=== PATIENT | female | born 1990 | race Hispanic/Latino ===

== ENCOUNTER 2017-05-16 14:46 | Emergency (ER) | payer BC, OTHER ==
[2017-05-16 14:46] VITALS: BMI 33.6
[2017-05-16 14:51] VITALS: BP 147/80; PULSE 107; RESP 18; TEMP 98.1; O2SAT 100
[2017-05-16] MEDS ORDERED: Lactated Ringer's 1,000 ML IV STA (14:58)
--- NOTE | 2017-05-16 15:07 | ED PDOC ---
HPI: Female Pain Time Seen by Provider: 05/16/17 14:57 Chief Complaint (Nursing): Female Genitourinary Chief Complaint (Provider): vaginal bleed History Per: Patient Onset/Duration Of Symptoms: Hrs (1) Current Symptoms Are (Timing): Better Severity: Moderate Quality Of Discomfort: Cramping Associated Symptoms: Nausea. denies: Fever, Chills, Vomiting, Urinary Symptoms Additional Complaint(s): Sudden onset vaginal bleeding while using bathroom about an hour prior to arrival, "gush of blood." Has decreased since then to light spotting. Cramping severe since 9am that has improved. (1 elective ab) at 6w2d per LMP April 02. Found out she was 5 days ago. OB: Nel (has 1st appt tomorrow) Past Medical History Reviewed: Historical Data, Nursing Documentation, Vital Signs Vital Signs: Last Vital Signs Temp 98.1 F 05/16/17 14:48 Pulse 107 H 05/16/17 14:48 Resp 18 05/16/17 14:48 BP 147/80 05/16/17 14:48 Pulse Ox 100 05/16/17 14:48 - Medical History Other PMH: Lyme - Surgical History Other surgeries: Culposcopy (no abnormal findings) - Family History Family History: States: No Known Family Hx - Social History Current smoker - smoking cessation education provided: No - Home Medications Home Medications: Ambulatory Orders Medication Instructions Recorded Multivit/Folic Acid/I 1 tab PO DAILY 05/02/16 [ Plus] - Allergies Allergies/Adverse Reactions: Allergies Allergy/AdvReac Type Severity Reaction Status Date / Time No Known Allergies Allergy Verified 05/16/17 14:47 Review of Systems ROS Statement: Except As Marked, All Systems Reviewed And Found Negative (and as per HPI) Gastrointestinal: Positive for: Nausea, Abdominal Pain. Negative for: Vomiting Genitourinary Female: Positive for: Vaginal Bleeding, Pelvic Pain. Negative for : Dysuria, Frequency Physical Exam - Reviewed Nursing Documentation Reviewed: Yes Vital Signs Reviewed: Yes - Physical Exam Appears: Positive for: Non-toxic, In Acute Distress (tearful) Head Exam: Positive for: ATRAUMATIC, NORMOCEPHALIC Skin: Positive for: Warm, Dry Eye Exam: Positive for: EOMI, PERRL ENT: Positive for: Pharynx Is (clear) Neck: Positive for: Painless ROM, Supple Cardiovascular/Chest: Positive for: Regular Rate, Rhythm. Negative for: Murmur Respiratory: Positive for: Normal Breath Sounds. Negative for: Respiratory Distress Gastrointestinal/Abdominal: Positive for: Bowel Sounds, Soft, Tenderness ( minimal suprapubic ttp) Back: Positive for: Normal Inspection. Negative for: Decreased ROM Extremity: Positive for: Normal ROM. Negative for: Deformity Lymphatic: Negative for: Adenopathy Neurologic/Psych: Positive for: Alert. Negative for: Motor/Sensory Deficits - Laboratory Results Result Diagrams: 05/16/17 15:25 Interpretation Of Abn Labs: No emergently critical lab abnormalities. Beta hcg level within range for 6 week . Previous labs in blood bank Rh + - ECG O2 Sat by Pulse Oximetry: 100 Pulse Ox Interpretation: Normal - Progress ED Course And Treament: Accession No. : [id number] Patient Name / ID : SAVANNAH HOLGUIN / [id number] Exam Date : 05/16/2017 17:02:30 ( Approved ) Study Comment : Sex / Age : F / [id number] Creator : Juju Cannon MD Dictator : Supervisor Fish Processing : Window Draper : Juju Cannon MD Approver2 : Report Date : 05/16/2017 17:55:30 My Comment : Indication: Vaginal bleeding, Comparison: None available Technique: Transvaginal pelvic ultrasound. Findings: The uterus measures approximately 8.7 x 3.7 x 6.0 cm anteverted. Cervix length measures approximately 3.9 cm. The gestational sac measures approximately 6 mm, out of range for gestational age calculation. 5 x 2 x 5 mm anechoic cystic appearing focus superior to the gestational sac 1 mm yolk sac. pole is not identified. The right ovary measures 3.6 x 2.6 x 2.7 cm. The left ovary measures 2.4 x 1.2 x 2.3 cm. Blood flow was demonstrated to both ovaries. Impression: Intrauterine gestational sac, too small for gestational age calculation. 1 mm yolk sac is seen. No evidence of pole at this time. Recommend clinical correlation including quantitative beta HCG. 5 x 2 x 4 mm anechoic cystic appearing focus noted superior to the gestational sac of uncertain significance. Attention on follow-up is suggested. Advise an anomaly screen at 16-18 weeks gestational age DW pt findings and plan of care. Has appointment with Dr Neumann in AM. Disposition - Clinical Impression Clinical Impression: Threatened miscarriage Counseled Patient/Family Regarding: Studies Performed, Diagnosis, Need For Followup - Disposition Referrals: Brock Neumann DO [Staff Provider] - 05/17/17 Disposition: Routine/Home Disposition Time: 18:06 Condition: STABLE Additional Instructions: REST AND PLENTY OF HYDRATING FLUIDS CONTINUE VITAMINS FOLLOW UP SCHEDULED WITH DR NEUMANN TOMORROW RETURN TO ER FOR SEVERE PAIN, FAINTING OR NEAR FAINTING, BLEEDING MORE THAN ONE PAD AN HOUR, OR ANY OTHER WORRISOME SYMPTOMS Instructions: Threatened Miscarriage (ED) Forms: [facility] ED School/Work Excuse
[2017-05-16 15:29] LABS: BASO # 0.1 K/uL (0.0-0.2); BASO % 0.8 % (0.0-2.0); EOS # 0.1 K/uL (0.0-0.7); EOS % 0.9 % (0.0-4.0); HEMATOCRIT 38.3 % (34.0-47.0); LYMPH # 2.4 K/uL (1.0-4.3); LYMPH % 25.5 % (20.0-40.0); MEAN CORPUSCULAR HEMOGLOBIN 32.5 pg (27.0-31.0); MEAN CORPUSCULAR HGB CONC 34.2 g/dL (33.0-37.0); MEAN PLATELET VOLUME 7.6 fl (7.2-11.7); MONO # 0.5 K/uL (0.0-0.8); MONO % 5.8 % (0.0-10.0); NEUT # 6.3 K/uL (1.8-7.0); NRBC % 0.1 % (0.0-0.0); RED CELL DISTRIBUTION WIDTH 12.6 % (11.5-14.5); WHITE BLOOD COUNT 9.4 K/uL (4.8-10.8)
--- NOTE | 2017-05-16 17:57 | US ---
Indication: Vaginal bleeding, Comparison: None available Technique: Transvaginal pelvic ultrasound. Findings: The uterus measures approximately 8.7 x 3.7 x 6.0 cm anteverted. Cervix length measures approximately 3.9 cm. The gestational sac measures approximately 6 mm, out of range for gestational age calculation. 5 x 2 x 5 mm anechoic cystic appearing focus superior to the gestational sac 1 mm yolk sac. pole is not identified. The right ovary measures 3.6 x 2.6 x 2.7 cm. The left ovary measures 2.4 x 1.2 x 2.3 cm. Blood flow was demonstrated to both ovaries. Impression: Intrauterine gestational sac, too small for gestational age calculation. 1 mm yolk sac is seen. No evidence of pole at this time. Recommend clinical correlation including quantitative beta HCG. 5 x 2 x 4 mm anechoic cystic appearing focus noted superior to the gestational sac of uncertain significance. Attention on follow-up is suggested. Advise an anomaly screen at 16-18 weeks gestational age
== END 2017-05-16 18:31 | disposition home or self-care (01) ==
LOC: H.ER 14:46
DX: O20.0 Threatened abortion (principal); Z3A.18 18 weeks gestation of pregnancy
CPT/HCPCS: 76817; 81025; 84702; 85025; 86850; 86900; 96360; 96361; 99283; J7120

== ENCOUNTER 2017-08-04 20:30 | Emergency (ER) | payer BC ==
[2017-08-04 20:30] VITALS: BMI 33.6
[2017-08-04 20:36] VITALS: BP 117/63; PULSE 109; RESP 16; TEMP 98.1; O2SAT 100
[2017-08-04] MEDS ORDERED: Sodium Chloride 0.9% 1,000 ML IV STA (21:02)
--- NOTE | 2017-08-04 21:02 | ED PDOC ---
HPI: Abdomen Time Seen by Provider: 08/04/17 20:41 Chief Complaint (Nursing): GI Problem Chief Complaint (Provider): Vomiting History Per: Patient Additional Complaint(s): 26 yo female, no PMH, presents to ED for evaluation of multiple episodes of vomiting since 7am. Patient is approximately 16 weeks . A2. Patient c/o crampy abdominal pain, denies vaginal bleeding or discharge. Past Medical History Reviewed: Nursing Documentation, Vital Signs Vital Signs: Last Vital Signs Temp 98.1 F 08/04/17 20:33 Pulse 109 H 08/04/17 20:33 Resp 16 08/04/17 20:33 BP 117/63 08/04/17 20:33 Pulse Ox 100 08/04/17 21:02 - Medical History PMH: No Chronic Diseases - Surgical History Surgical History: No Surg Hx - Family History Family History: States: No Known Family Hx - Living Arrangements Living Arrangements: With Family - Social History Alcohol: Social Drugs: Denies - Home Medications Home Medications: Ambulatory Orders Medication Instructions Recorded Multivit/Folic Acid/I 1 tab PO DAILY 05/02/16 [ Plus] Ondansetron ODT [Zofran ODT] 4 mg PO Q6 PRN #10 odt 08/04/17 - Allergies Allergies/Adverse Reactions: Allergies Allergy/AdvReac Type Severity Reaction Status Date / Time No Known Allergies Allergy Verified 08/04/17 20:33 Review of Systems ROS Statement: Except As Marked, All Systems Reviewed And Found Negative Physical Exam - Reviewed Nursing Documentation Reviewed: Yes Vital Signs Reviewed: Yes - Physical Exam Appears: Positive for: Well, Non-toxic, No Acute Distress Head Exam: Positive for: ATRAUMATIC, NORMAL INSPECTION, NORMOCEPHALIC Skin: Positive for: Normal Color, Warm, DRY Eye Exam: Positive for: EOMI, Normal appearance, PERRL ENT: Positive for: Normal ENT Inspection Neck: Positive for: Normal, Painless ROM Cardiovascular/Chest: Positive for: Regular Rate, Rhythm Respiratory: Positive for: CNT, Normal Breath Sounds Gastrointestinal/Abdominal: Positive for: Normal Exam, Bowel Sounds, Soft Back: Positive for: Normal Inspection Extremity: Positive for: Normal ROM Neurologic/Psych: Positive for: Alert, Oriented - Laboratory Results Result Diagrams: 08/04/17 21:19 08/04/17 21:19 - ECG O2 Sat by Pulse Oximetry: 100 Medical Decision Making Medical Decision Making: IV access established and treatment initiated with IVF and Zofran Labs resulted and reviewed with Pt who demonstrated full understanding Pt reports feeling well on re-eval. Abdomen soft non tender and non distended Disposition - Clinical Impression Clinical Impression: Gastroenteritis - Patient ED Disposition Is Patient to be Admitted: No - Disposition Disposition: Routine/Home Disposition Time: 22:00 Condition: STABLE Prescriptions: Ondansetron ODT [Zofran ODT] 4 mg PO Q6 PRN #10 odt PRN Reason: Nausea/Vomiting Instructions: Gastroenteritis (ED) Forms: [facility] (Romanian)
[2017-08-04 21:24] LABS: BASO % 0.2 % (0.0-2.0); EOS % 0.1 % (0.0-4.0); HEMATOCRIT 34.3 % (34.0-47.0); LYMPH # 0.8 K/uL (1.0-4.3); LYMPH % 11.3 % (20.0-40.0); MEAN CORPUSCULAR HEMOGLOBIN 32.4 pg (27.0-31.0); MEAN CORPUSCULAR HGB CONC 33.8 g/dL (33.0-37.0); MEAN PLATELET VOLUME 7.6 fl (7.2-11.7); MONO # 0.3 K/uL (0.0-0.8); MONO % 4.8 % (0.0-10.0); NEUT # 5.8 K/uL (1.8-7.0); NEUT % 83.6 % (50.0-75.0); RED CELL DISTRIBUTION WIDTH 13.1 % (11.5-14.5); WHITE BLOOD COUNT 6.9 K/uL (4.8-10.8)
[2017-08-04 21:34] LABS: ALB/GLOB RATIO 1.4 (1.0-2.1); ALKALINE PHOSPHATASE 46 U/L (38-126); ALT/SGPT 28 U/L (9-52); AST/SGOT 18 U/L (14-36); BILIRUBIN,TOTAL 0.5 mg/dl (0.2-1.3); BLOOD UREA NITROGEN 8 mg/dl (7-17); CALCIUM 8.9 mg/dL (8.4-10.2); CARBON DIOXIDE 21 mmol/L (22-30); CHLORIDE 103 mmol/L (98-107); GFR AFRICAN-AMERICAN > 60; GLUCOSE,RANDOM 92 mg/dL (65-105); POTASSIUM 3.7 MMOL/L (3.6-5.0); SODIUM 135 mmol/l (132-148); TOTAL PROTEIN 6.4 G/DL (6.3-8.2)
[2017-08-04 21:59] LABS: RBC URINE 2 /hpf (0-3); URINE BACTERIA RARE (<OCC); WBC URINE 1 /hpf (0-5)
[2017-08-04 22:06] LABS: PH,URINE 5.5 (5.0-8.0); URINE BILIRUBIN NEGATIVE (NEGATIVE); URINE BLOOD TRACE-INTACT (NEGATIVE); URINE COLOR YELLOW (YELLOW); URINE GLUCOSE (UA) NEGATIVE (Normal); URINE KETONE 40 mg/dL (NEGATIVE); URINE PROTEIN 30 mg/dL (NEGATIVE)
[2017-08-04 22:07] LABS: URINE LEUKOCYTE ESTERASE NEGATIVE Leu/uL (Negative)
== END 2017-08-04 23:05 | disposition home or self-care (01) ==
LOC: H.ER 20:30
DX: O99.612 Diseases of the digestive system complicating pregnancy, second trimester (principal); K52.9 Noninfective gastroenteritis and colitis, unspecified; Z3A.16 16 weeks gestation of pregnancy
CPT/HCPCS: 80053; 81003; 85025; 96374; 99283; J2405; J7040

== ENCOUNTER 2017-12-11 15:36 | Observation (INO) | payer BC ==
[2017-12-11] MEDS: Lactated Ringer's 1,000 ML IV SCH ×3 (16:00→18:37)
[2017-12-11 16:18] LABS: BASO # 0.1 K/uL (0.0-0.2); BASO % 0.4 % (0.0-2.0); EOS # 0.1 K/uL (0.0-0.7); EOS % 0.4 % (0.0-4.0); HEMOGLOBIN 13.6 g/dL (12.0-16.0); LYMPH # 1.4 K/uL (1.0-4.3); LYMPH % 10.1 % (20.0-40.0); MEAN CELL VOLUME 94.3 fl (81.0-99.0); MEAN CORPUSCULAR HEMOGLOBIN 31.8 pg (27.0-31.0); MEAN CORPUSCULAR HGB CONC 33.7 g/dL (33.0-37.0); MEAN PLATELET VOLUME 7.8 fl (7.2-11.7); MONO # 0.7 K/uL (0.0-0.8); MONO % 4.6 % (0.0-10.0); NEUT % 84.5 % (50.0-75.0); RBC 4.28 Mil/uL (3.80-5.20); RED CELL DISTRIBUTION WIDTH 13.6 % (11.5-14.5); WHITE BLOOD COUNT 14.2 K/uL (4.8-10.8)
[2017-12-11 16:35] LABS: ALB/GLOB RATIO 1.1 (1.0-2.1); ALT/SGPT 26 U/L (9-52); AMYLASE 57 U/L (30-110); AST/SGOT 27 U/L (14-36); BLOOD UREA NITROGEN 9 mg/dl (7-17); CALCIUM 9.4 mg/dL (8.4-10.2); GFR AFRICAN-AMERICAN > 60; GFR NON-AFRICAN AMERICAN > 60; LIPASE 52 U/L (23-300)
[2017-12-11 16:39] LABS: SQUAMOUS EPITHIAL 7 /hpf (0-5); URINE BACTERIA MOD (<OCC); URINE BILIRUBIN NEGATIVE (NEGATIVE); URINE BLOOD NEGATIVE (NEGATIVE); URINE CLARITY CLOUDY (Clear); URINE COLOR AMBER (YELLOW); URINE GLUCOSE (UA) NEG (Normal); URINE LEUKOCYTE ESTERASE TRACE Leu/uL (Negative); URINE NITRATE NEGATIVE (NEGATIVE); URINE PROTEIN 30 mg/dL (NEGATIVE); URINE UROBILINOGEN 0.2-1.0 mg/dL (0.2-1.0)
[2017-12-11 17:32] LABS: SPECIMEN COMMENT CLOUDY
--- NOTE | 2017-12-11 18:08 | OBHP ---
Datetime: 12/11/2017 18:06 Admit Comment, IP Provider: She felt better after IV Zofran WBC 14K Will obtain surgical consult - eval for possible appendicitis Abd sono to check gal bladder/appendix Datetime: 12/11/2017 16:30 IP Adm Impression: , intrauterine ; No Active Labor; Intact Membranes IP Admit Plan: Observation/Evaluation Pelvic Type - PN: Adequate Extremities - PN: Normal Abdomen - PN: Normal Back - PN: Normal Breast - PN: Not Done Lungs - PN: Normal Heart - PN: Normal Thyroid - PN: Normal Neurologic - PN: Normal HEENT - PN: Normal General - PN: Normal Presentation-Admit: Vertex FHR - Baseline A Provider: 130 Membranes, Provider: Intact Comments, ACOG Physical Exam: Abd soft gravid uterus; nontender Pool Provider: Negative IP Hx Assessment: The History has been Reviewed and is Current EGA AdmitDate IP: 34.6 Vital Signs Provider: Reviewed IP Chief Complaint: Other NICHD Variability Prov Fetus A: Moderate 6-25bpm NICHD Accel Fetus A IP Provider: 15X15 FHR Category Provider Fetus A: Category I NICHD Decel Fetus A IP Provider: None Dilatation, Provider: 0 Effacement, Provider: 0 Genitourinary Exam: Normal DTRs - PN: Normal
--- NOTE | 2017-12-11 19:37 | CP.PCM.CON ---
History of Present Illness - History of Present Illness History of Present Illness: General Surgery: Dr Motta Pt is a 27F, 35weeks , who presents with <24 hours of elia-umbilical pain accompanied by 10-12 episodes of emesis. Pt states pain has been located around the umbilicus and has been persistent. Relieved only by flexing her knees up towards her chest. No exacerbating factors. Denies fevers or chills. Had single episode of diarrhea this morning. Emesis has been non-bloody and non-billous. Pt denies any similar presentations throughout her pregancy. Pt states pain has most resolved already though still mildy present. US performed does not visualize the appendix. Review of Systems - Review of Systems All systems: reviewed and no additional remarkable complaints except (as per hpi ) Past Patient History - Past Social History Smoking Status: Never Smoked - PSYCHIATRIC Hx Substance Use: No Meds Allergies/Adverse Reactions: Allergies Allergy/AdvReac Type Severity Reaction Status Date / Time No Known Allergies Allergy Verified 08/04/17 20:33 - Medications Medications: Current Medications Lactated Ringer's (Lactated Ringer's) 1,000 mls @ 125 mls/hr IV .Q8H ZEINAB Last Admin: 12/11/17 18:37 Dose: 125 mls/hr Piperacillin Sod/Tazobactam (Sod 2.25 gm/ Sodium Chloride) 100 mls @ 100 mls/ hr IVPB Q8 ZEINAB PRN Reason: Protocol Physical Exam - Constitutional Appears: Non-toxic, No Acute Distress - Eye Exam Eye Exam: Normal appearance - Respiratory Exam Respiratory Exam: absent: Accessory Muscle Use, Respiratory Distress - Cardiovascular Exam Cardiovascular Exam: Tachycardia, REGULAR RHYTHM - GI/Abdominal Exam GI & Abdominal Exam: Distended, Soft, Tenderness (elia-umbilical). absent: Firm , Guarding, Hernia, Rebound, Rigid Additional comments: no RLQ pain - psoas sign - Neurological Exam Neurological exam: Alert, Oriented x3 Results - Labs Result Diagrams: 12/11/17 16:13 12/11/17 16:13 Labs: Laboratory Results - last 24 hr 12/11/17 12/11/17 12/11/17 16:13 16:13 16:13 WBC 14.2 H D RBC 4.28 Hgb 13.6 D Hct 40.4 MCV 94.3 MCH 31.8 H MCHC 33.7 RDW 13.6 Plt Count 324 MPV 7.8 Neut % (Auto) 84.5 H Lymph % (Auto) 10.1 L [place] % (Auto) 4.6 Eos % (Auto) 0.4 Baso % (Auto) 0.4 Neut # (Auto) 12.0 H Lymph # (Auto) 1.4 [place] # (Auto) 0.7 Eos # (Auto) 0.1 Baso # (Auto) 0.1 Sodium 139 Potassium 4.0 Chloride 104 Carbon Dioxide 22 Anion Gap 17 BUN 9 Creatinine 0.4 L Est GFR ( Amer) > 60 Est GFR (Non-Af Amer) > 60 Random Glucose 83 Calcium 9.4 Total Bilirubin 0.5 AST 27 ALT 26 Alkaline Phosphatase 98 Total Protein 7.5 Albumin 4.0 Globulin 3.5 Albumin/Globulin Ratio 1.1 Amylase 57 Lipase 52 Urine Color Monika Urine Clarity Cloudy Urine pH 5.0 Ur Specific [place] 1.026 Urine Protein 30 Urine Glucose (UA) Neg Urine Ketones 80 Urine Blood Negative Urine Nitrate Negative Urine Bilirubin Negative Urine Urobilinogen 0.2-1.0 Ur Leukocyte Esterase Trace Urine RBC (Auto) 8 H Urine Microscopic WBC 6 H Ur Squamous Epith Cells 7 H Urine Bacteria Mod H Fibronectin Fibronectin Comment 12/11/17 16:15 WBC RBC Hgb Hct MCV MCH MCHC RDW Plt Count MPV Neut % (Auto) Lymph % (Auto) [place] % (Auto) Eos % (Auto) Baso % (Auto) Neut # (Auto) Lymph # (Auto) [place] # (Auto) Eos # (Auto) Baso # (Auto) Sodium Potassium Chloride Carbon Dioxide Anion Gap BUN Creatinine Est GFR ( Amer) Est GFR (Non-Af Amer) Random Glucose Calcium Total Bilirubin AST ALT Alkaline Phosphatase Total Protein Albumin Globulin Albumin/Globulin Ratio Amylase Lipase Urine Color Urine Clarity Urine pH Ur Specific [place] Urine Protein Urine Glucose (UA) Urine Ketones Urine Blood Urine Nitrate Urine Bilirubin Urine Urobilinogen Ur Leukocyte Esterase Urine RBC (Auto) Urine Microscopic WBC Ur Squamous Epith Cells Urine Bacteria Fibronectin Negative Fibronectin Comment Cloudy Assessment & Plan - Assessment and Plan (Free Text) Assessment: 27F 35weeks with acute abdominal pain; r/o appendicitis Plan: empiric abx - will start on zosyn MRI of abdomen tomorrow morning further recs to follow d/w Dr Motta and Dr Nel Gee, PGY3
--- NOTE | 2017-12-11 21:44 | US ---
EXAM: US Abdomen Limited, Right Upper Quadrant CLINICAL HISTORY: 27 years old, female; Signs and symptoms; Nausea and vomiting; ; Additional info: N/v 34w TECHNIQUE: Real-time ultrasound of the right upper quadrant with image documentation. COMPARISON: No relevant prior studies available. FINDINGS: Liver: Normal echogenicity. No mass. No intrahepatic bile duct dilatation. Gallbladder: No gallstones. No wall thickening. No pericholecystic fluid. No sonographic Shelton's sign. Common bile duct: No dilatation. No stones. Pancreas: Unremarkable as visualized. Right kidney: Normal echogenicity. Probable 0.4 cm calculus. Mild pelvocaliectasis. Bladder: Unremarkable. Appendix: Not visualized. IMPRESSION: 1. Mild pelvocaliectasis of RIGHT kidney. 2. Nonvisualization of appendix. 3. Incidental/non-acute findings are described above.
[2017-12-12] MEDS: Lactated Ringer's 1,000 ML IV SCH ×2 (02:00→11:00)
--- NOTE | 2017-12-12 09:15 | OBADHP ---
Datetime: 12/11/2017 23:00 Admit Comment, IP Provider: IUP at34w c/o n/v throughout the day today; sudden onset; 15x; s ome diarrhea; pain in periumbilcial area. No CTX pain; no VB; No SROM; +FM POBH: x 1 PGYNH: Hx HPV PMH: possible femoral hernia PSH: Umbilcial hernia repair NKA PSoH: denies smoking ETOH drugs PFH: father HTN A: IUP at 34w6d N/V probably viral - surgery consulted and MRI in AM IP Hx Assessment: The History has been Reviewed and is Current Datetime: 12/11/2017 16:30 Pelvic Type - PN: Adequate Extremities - PN: Normal Abdomen - PN: Normal Back - PN: Normal Breast - PN: Not Done Lungs - PN: Normal Heart - PN: Normal Thyroid - PN: Normal Neurologic - PN: Normal HEENT - PN: Normal General - PN: Normal Presentation-Admit: Vertex FHR - Baseline A Provider: 130 Membranes, Provider: Intact Comments, ACOG Physical Exam: Abd soft gravid uterus; nontender Pool Provider: Negative Vital Signs Provider: Reviewed IP Chief Complaint: Other NICHD Variability Prov Fetus A: Moderate 6-25bpm NICHD Accel Fetus A IP Provider: 15X15 FHR Category Provider Fetus A: Category I NICHD Decel Fetus A IP Provider: None Dilatation, Provider: 0 Effacement, Provider: 0 Genitourinary Exam: Normal DTRs - PN: Normal EGA AdmitDate IP: 34.6 IP Adm Impression: , intrauterine ; No Active Labor; Intact Membranes IP Admit Plan: Observation/Evaluation
--- NOTE | 2017-12-12 15:14 | MRI ---
PROCEDURE: MRI abdomen HISTORY: r/o appendicitis. Thirty-four weeks . COMPARISON: Not available TECHNIQUE: Multiplanar, multi sequence imaging of the abdomen and pelvis was performed without intravenous gadolinium administration. FINDINGS: The cecum is identified in the right upper quadrant of the abdomen. The appendix is not definitely identified. The cecum is only adequately visualized in the coronal and sagittal planes. The inferior portion of the cecum is adequately visualize on axial T1 weighted images. Upper cecum cannot be adequately visualized. The examination demonstrates no evidence of appendicitis. No fluid filled tubular structure is identified in the region of the visualized cecum/cecal apex. There is no gross evidence of cecal inflammation. No pericecal mass or fluid collection is identified. A 3rd trimester is visualized. Anatomic evaluation of the fetus is not attempted on the basis this examination. There is fluid seen within the stomach and urinary bladder. There is no evidence of hydronephrosis. IMPRESSION: No evidence of acute appendicitis. 3rd trimester . Limited evaluation due to high position of the cecum.
--- NOTE | 2017-12-12 15:36 | CP.PCM.PN ---
Subjective - Date & Time of Evaluation Date of Evaluation: 12/12/17 Time of Evaluation: 10:45 - Subjective Subjective: General Surgery Dr. Motta Pt S&E @bedside. NAEO. Pt reports no abd pain this morning. Pt denies F/C, N/V. Objective - Vital Signs/Intake and Output Vital Signs (last 24 hours): Temp Pulse Resp BP Pulse Ox 98.7 F 80 21 105/58 L 99 12/11/17 22:08 12/11/17 22:08 12/11/17 22:08 12/11/17 22:08 12/11/17 22:08 - Medications Medications: Current Medications Acetaminophen (Tylenol 325mg Tab) 650 mg PO Q4 PRN PRN Reason: Pain, Mild (1-3) Last Admin: 12/11/17 20:32 Dose: 650 mg Lactated Ringer's (Lactated Ringer's) 1,000 mls @ 125 mls/hr IV .Q8H ZEINAB Last Admin: 12/12/17 11:00 Dose: 125 mls/hr Piperacillin Sod/Tazobactam (Sod 2.25 gm/ Sodium Chloride) 100 mls @ 100 mls/ hr IVPB Q8 ZEINAB PRN Reason: Protocol Last Admin: 12/12/17 12:00 Dose: 100 mls/hr Ondansetron HCl (Zofran Inj) 4 mg IVP Q6 PRN PRN Reason: Nausea/Vomiting - Labs Labs: 12/11/17 16:13 12/11/17 16:13 - Constitutional Appears: Non-toxic, No Acute Distress - Head Exam Head Exam: NORMAL INSPECTION - Eye Exam Eye Exam: Normal appearance - ENT Exam ENT Exam: Mucous Membranes Moist - Respiratory Exam Respiratory Exam: NORMAL BREATHING PATTERN. absent: Accessory Muscle Use, Respiratory Distress - Cardiovascular Exam Cardiovascular Exam: REGULAR RHYTHM. absent: Bradycardia, Tachycardia - GI/Abdominal Exam GI & Abdominal Exam: Soft. absent: Distended, Tenderness - Extremities Exam Extremities Exam: Normal Inspection - Neurological Exam Neurological Exam: Alert, Awake, Oriented x3 - Psychiatric Exam Psychiatric exam: Normal Affect, Normal Mood - Skin Skin Exam: Dry, Intact, Normal Color, Warm Assessment and Plan - Assessment and Plan (Free Text) Assessment: 27 y/o F 35wks w/ resolved abd pain - MRI negative for appendicitis - pt cleared for discharge form surgical standpoint - pt should return to the ED if symptoms return Pt discussed w/ Dr. Kalia Gillespie DO PGY2
--- NOTE | 2017-12-12 16:43 | OBPN ---
Datetime: 12/12/2017 16:39 IP Progress Note Comment: Patient states she feels much better pain resolved nausea and vomiting imp roved Physical exam abdomen gravid soft nontender no rebound no guarding Extremities no Homans Intrauterine at 35 weeks Abdominal pain resolved MRI unremarkable Discussed care with surgery patient cleared for discharge Patient to follow up with this week labor precautions provided Datetime: 12/11/2017 16:30 Pool Provider: Negative Membranes, Provider: Intact FHR - Baseline A Provider: 130 Presentation-Admit: Vertex Vital Signs Provider: Reviewed NICHD Accel Fetus A IP Provider: 15X15 FHR Category Provider Fetus A: Category I NICHD Variability Prov Fetus A: Moderate 6-25bpm Dilatation, Provider: 0 Effacement, Provider: 0 NICHD Decel Fetus A IP Provider: None
[2017-12-12 21:29] VITALS: BP 116/57; PULSE 94; RESP 18; TEMP 98.3; O2SAT 98
== END 2017-12-12 16:45 | disposition home or self-care (01) ==
LOC: H.EROB2 15:36 → H.L&D 19:45
PROVIDERS: ADMIT Obstetrics & Gynecology; ATTEND Obstetrics & Gynecology
DX: O99.89 Other specified diseases and conditions complicating pregnancy, childbirth and the puerperium (principal); R10.33 Periumbilical pain; R11.2 Nausea with vomiting, unspecified; Z3A.35 35 weeks gestation of pregnancy
CPT/HCPCS: 74181; 76705; 80053; 81003; 82150; 82731; 83690; 85025; 96361; 96365; 96375; 99284; G0378; J2405; J2543; J7120

== ENCOUNTER 2018-01-17 06:20 | Inpatient (IN) | payer BC ==
[2018-01-17 07:27] VITALS: BMI 30.5
[2018-01-17] MEDS ORDERED: Oxytocin 30 units/LR 500ML 30 U/500 ML BAG IV ONE (08:40)
[2018-01-17] MEDS: Lactated Ringer's 1,000 ML IV SCH ×2 (08:40→09:40)
[2018-01-17 09:13] LABS: BASO # 0.1 K/uL (0.0-0.2); BASO % 0.4 % (0.0-2.0); EOS # 0.1 K/uL (0.0-0.7); EOS % 0.6 % (0.0-4.0); HEMOGLOBIN 12.6 g/dL (12.0-16.0); LYMPH % 16.8 % (20.0-40.0); MEAN CELL VOLUME 93.5 fl (81.0-99.0); MEAN CORPUSCULAR HEMOGLOBIN 31.3 pg (27.0-31.0); MEAN CORPUSCULAR HGB CONC 33.5 g/dL (33.0-37.0); MONO # 0.7 K/uL (0.0-0.8); MONO % 5.9 % (0.0-10.0); NEUT # 8.9 K/uL (1.8-7.0); NEUT % 76.3 % (50.0-75.0); NRBC % 0.2 % (0.0-0.0); RBC 4.03 Mil/uL (3.80-5.20); RED CELL DISTRIBUTION WIDTH 14.4 % (11.5-14.5); WHITE BLOOD COUNT 11.6 K/uL (4.8-10.8)
[2018-01-17] MEDS ORDERED: Lidocaine 2% Inj (20ml) ONE (10:31)
[2018-01-17] MEDS ORDERED: Fentanyl/Bupivacaine HCl 250 ML EPI ONE (11:23)
[2018-01-17] MEDS ORDERED: Oxycodone/Acetaminophen 5/325 mg Tab PO PRN ×2 (15:57)
[2018-01-18 10:09] LABS: HEMOGLOBIN 12.4 g/dL (12.0-16.0); MEAN CELL VOLUME 94.4 fl (81.0-99.0); MEAN CORPUSCULAR HEMOGLOBIN 31.1 pg (27.0-31.0); RBC 3.98 Mil/uL (3.80-5.20); RED CELL DISTRIBUTION WIDTH 14.4 % (11.5-14.5); WHITE BLOOD COUNT 12.9 K/uL (4.8-10.8)
--- NOTE | 2018-01-18 14:02 | OBDS ---
DELIVERY PERSONNEL Delivery Doctor: Bert Gross MD Secured Entrance Monitor: Anahi Peratla RN Anesthesiologist: Dr Brand MATERNAL INFORMATION Delivery Anesthesia: Local; Epidural Medications in Delivery: none Estimated Blood Loss (ml): 300 Placenta Cultured: No Maternal Complications: None RN Comments: patient delivered viable girl, baby was clamped and placed on maternal chest for skin to skin. apgars were 9/9. placenta delivered and pitocin 30units infusing at 999ml/hr. repair for second degree lac. patient tolerated well. remained with mother, skin to skin for bonding and latching. patient stable, VSS Provider Comments: Patient delivered viable female with Apgars of 9 and 9 at one and 5 minute s respectively. Placenta delivered spontaneously. Laceration repaired, as above. Uterus firm and appr opriately hemostatic following delivery. Patient tolerated delivery and repair well. No complications . Estimated blood loss 300 mL's. LABOR SUMMARY EDC: 01/16/2018 00:00 No. Babies in Womb: 1 Attempted: No Labor Anesthesia: Epidural LABOR INFORMATION Reason for Induction: Not Applicable Onset of Labor: 01/17/2018 05:30 Complete Dilatation: 01/17/2018 15:00 Oxytocin: N/A Group B Beta Strep: Negative (Annotations: 12/20/2017) Steroids Given: None Reason Steroids Not Administered: Not Applicable MEMBRANES Membranes Rupture Method: Spontaneous Rupture of Membranes: 01/17/2018 10:31 Length of Rupture (hrs): 4.97 Amniotic Fluid Color: Clear Amniotic Fluid Amount: Small Amniotic Fluid Odor: Normal STAGES OF LABOR Stage 1 hrs: 9 Stage 1 min: 30 Stage 2 hrs: 0 Stage 2 min: 29 Stage 3 hrs: 0 Stage 3 min: 4 Total Time in Labor hrs: 10 Total Time in Labor min: 3 VAGINAL DELIVERY Episiotomy: None Laceration Extension: Second Degree Laceration Type: Perineal Laceration Repair: Yes Laceration Repair Note: Second degree midline perineal laceration. Area infiltrated with 1% lidocain e. Laceration repaired with 2. 0 repeat without complication. Tolerated well. Initial Vag Sponge Count: 10 Final Vag Sponge Count: 10 Initial Vag Sharps Count: 2 Final Vag Sharps Count: 2 Sponge Count Correct: Yes Sharps Count Correct: Yes BABY A INFORMATION Delivery Date/Time: 01/17/2018 15:29 Method of Delivery: Vaginal Born in Route : No : N/A Forceps: N/A Vacuum Extraction: N/A Shoulder Dystocia : No SHOULDER DYSTOCIA BABY A Delivery Date/Time: 01/17/2018 15:29 PRESENTATION/POSITION BABY A Presentation: Cephalic PLACENTA INFORMATION BABY A Placenta Delivery Time : 01/17/2018 15:33 Placenta Method of Delivery: Spontaneous Placenta Status: Delivered SCORES BABY A Heart Rate 1 min: >100 bpm Resp Effort 1 min: Good Cry Reflex Irritability 1 min: Cough or Sneeze or Pulls Away Muscle Tone 1 min: Active Motion Color 1 min: Body [place], Extremities Blue Resuscitation Effort 1 min: N/A SCORE 1 MIN: 9 Heart Rate 5 min: >100 bpm Resp Effort 5 min: Good Cry Reflex Irritability 5 min: Cough or Sneeze or Pulls Away Muscle Tone 5 min: Active Motion Color 5 min: Body [place], Extremities Blue Resuscitation Effort 5 min: N/A SCORE 5 MIN: 9 INFORMATION BABY A Gestational Age at Delivery: 40.1 Gestational Status: Term Outcome : Liveborn Infant Condition : Stable Infant Sex: Female WEIGHT/LENGTH BABY A Birthweight (gms): 3435 Infant Weight (lb): 7 Weight (oz): 9 CORD INFORMATION BABY A No. Cord Vessels: 3 Nuchal Cord : N/A Cord Blood Taken: Yes Suction: Mouth
--- NOTE | 2018-01-18 19:00 | OBPPN ---
Datetime: 01/18/2018 18:55 PP Pain Prov: Within normal limits PP Nausea Prov: Denies PP Flatus Prov: Yes PP Breasts Prov: Normal PP Heart Prov: Normal PP Lungs Prov: Normal PP Abdomen/Uterus Prov: Normal PP Lochia Prov: Normal PP Vulva/Perineum Prov: Normal PP CVA Tenderness Prov: Normal PP Extremities Prov: Normal PP Comments Phys Exam Prov: Fundus firm under umbilicus PP Impression Prov: Normal progression PP Plan Prov: Continue present management PP Progress Note Prov: Patient denies CP, no SOB, no N/V, tolerating PO diet, abdominal pain tolerab le with meds A/P 1. Reg diet 2. Percocet/Motrin prn pain 3. Encourage ambulation/ IP PP Procedures: None Vital Signs Provider PP: Reviewed; Within Normal Limits
--- NOTE | 2018-01-19 07:31 | OBDCSUM ---
Datetime: 01/19/2018 07:28 Discharged to, Provider: Home Follow up at, Provider: Dr. Nel Hanley Instr Activity: Normal activity; May Shower Disch Instr Diet: Regular Discharge Instructions, Provider: Routine instructions given Discharge Diagnosis, Provider: Term Delivered Discharge Time: 01/19/2018 07:28 Follow up in weeks, Provider: 6 weeks Contraception discussed, Prov: No Disch Activity Restrictions: No exercising; No lifting; No sexual activity; Nothing in vagina - Inte rcourse, tampons, douche
--- NOTE | 2018-01-19 07:31 | OBPPN ---
Datetime: 01/19/2018 07:27 PP Pain Prov: Within normal limits PP Abdomen/Uterus Prov: Normal PP Lochia Prov: Normal PP Extremities Prov: Normal PP Progress Prov: Normal PP Impression Prov: Normal progression PP Plan Prov: Discharge PP Progress Note Prov: PPD 2 s/p , doing wel, breats and bottle feeding Rx motrin given Discharge home today Vital Signs Provider PP: Reviewed; Within Normal Limits
[2018-01-19 18:11] VITALS: BP 130/82; PULSE 78; RESP 20; TEMP 98.1; O2SAT 98
== END 2018-01-19 12:38 | disposition home or self-care (01) | DRG 775 ==
LOC: H.EROB2 06:20 → H.L&D 07:28 → H.OB/GYN 17:15
PROVIDERS: ADMIT Obstetrics & Gynecology; ATTEND Obstetrics & Gynecology
PROC: 10E0XZZ Delivery of Products of Conception, External Approach (ICD-10-PCS; principal; 2018-01-17)
PROC: 0KQM0ZZ Repair Perineum Muscle, Open Approach (ICD-10-PCS; 2018-01-17)
PROC: 4A1HXCZ Monitoring of Products of Conception, Cardiac Rate, External Approach (ICD-10-PCS; 2018-01-17)
DX: O70.1 Second degree perineal laceration during delivery (principal); Z37.0 Single live birth; Z3A.40 40 weeks gestation of pregnancy